=== PATIENT | female | born 1950 | race Caucasian/White ===

== ENCOUNTER 2024-11-01 06:44 | Day surgery (SDC) | payer OTHER ==
[~2024-11-01] VITALS: Ht 157.5 cm; Wt 65.0 kg
[2024-11-01] VITALS (11 sets, daily range): BP systolic 109–127; BP diastolic 48–78
[~2024-11-01 06:44] MED LIST: IBU800 M1 PO; MULVITA PO
--- NOTE | 2024-11-01 07:20 | NUR ---
Ambulatory in Day SurgeryPre-Op teaching done. Pt verbalizes understanding. History, Chart, Medications and Allergies reviewed before start of procedure.Patient confirms NPO status and agrees with scheduled surgery. Patient reports completing Chlorhexadine shower X2 prior to admission to hospital.Patient States Post-Procedure ride home has been arranged.
[2024-11-01] MEDS ORDERED: FentaNYL Citrate 50 MCG/ML 2 ML Injection ONE (07:35)
[2024-11-01] MEDS ORDERED: Ketorolac Tromethamine 30mg Vial ONE (07:35)
[2024-11-01] MEDS ORDERED: Ondansetron HCl 2 MG / ML 2ML Vial ONE (07:35)
[2024-11-01] MEDS ORDERED: Dexamethasone Sod Phos 10 MG/ML 1ML VIAL ONE (07:35)
[2024-11-01] MEDS ORDERED: Bupivacaine 0.5% W/EPI 1:200000 SDV 30 ML Vial ONE (07:38)
[2024-11-01] MEDS ORDERED: Estradiol Vag Cream 0.1 MG/G 42.5 GM Tube ONE (07:40)
[2024-11-01] MEDS ORDERED: Phenylephrine HCl 100 MCG/ML-NS 10MLSYR (1MG/10ML) ONE (08:23)
[2024-11-01] MEDS ORDERED: ePHEDrine Sulfate 50 MG/ML 1ML Injection ONE (08:35)
[2024-11-01] MEDS ORDERED: FentaNYL Citrate 50 MCG/ML 2 ML Injection IV PRN (09:25)
[2024-11-01] MEDS ORDERED: HYDROcodone 5-APAP 325 TAB PO PRN (09:25)
--- NOTE | 2024-11-01 10:48 | NUR ---
POST OP: REPORT RECEIVED FROM CARLOS LOREDO RN. PT TO UNIT AT 1000, A/O, VSS. PT DENIES PAIN, THERE IS NO VAGINAL BLEED. PAD IN PLACE. STONE DRAINING. PT ORIENTED TO ROOM AND CALL LIGHT. AT BEDSIDE
[2024-11-01] MEDS ORDERED: HYDROCODONE-AC1 EA10 PO (11:03)
[2024-11-01] MEDS ORDERED: Ketorolac Tromethamine 30mg Vial IV SCH (12:00)
--- NOTE | 2024-11-01 12:40 | NUR ---
DISCHARGE: PT DOING WELL POST OP. VSS, A/O, NO BLEED. PT ABLE TO AMBULATE AND STONE DC'D AT ABOUT 1030. PT VOIDED X2. REPORTS MINIMAL PAIN. DC INSTRUCTIONS PRINTED AND PT EDUCATED. IV DC'D WNL, TIP INTACT AND PT LEFT UNIT WITH AT ABOUT 1230 VIA WHEELCHAIR WITH AMILCAR MONZON.
== END 2024-11-01 12:44 | disposition home or self-care (01) ==
LOC: SURS 06:44 → ORSCMMR 06:44 → ORD 08:00 → ORSCMMR 08:00 → SURS 09:58 → ORD 10:00 → ORSCMMR 12:44
PROVIDERS: Obstetrics & Gynecology
PROC: 0JQC0ZZ Repair Pelvic Region Subcutaneous Tissue and Fascia, Open Approach (ICD-10-PCS; principal; 2024-11-01 08:00)
DX: N99.3 Prolapse of vaginal vault after hysterectomy (principal)
CPT/HCPCS: A9270; J1100; J1885; J2371; J2405; J2704; J3010; J7120